=== PATIENT | male | born 2005 | race Two or more races ===

== ENCOUNTER 2025-08-20 21:51 | Emergency (ER) | payer OTHER ==
[~2025-08-20] VITALS: Ht 180.3 cm; Wt 74.8 kg
[2025-08-20] MEDS ORDERED: CEFTRIAXONE SODIUM 1,000 MG VIAL IV ONE (23:30)
[2025-08-20] MEDS ORDERED: FAMOTIDINE/PF 20 MG/2 ML VIAL IV ONE (23:30)
[2025-08-20] MEDS ORDERED: KETOROLAC TROMETHAMINE 30 MG VIAL IV ONE (23:30)
[2025-08-21] MEDS ORDERED: KETOROLAC TROMETHAMINE 30 MG VIAL ONE (01:07)
[2025-08-21] MEDS ORDERED: FAMOTIDINE/PF 20 MG/2 ML VIAL ONE (01:08)
[2025-08-21] MEDS ORDERED: CEFTRIAXONE SODIUM 1,000 MG VIAL ONE ×2 (01:08→01:24)
[2025-08-21 03:19] LABS: BASO % 0.6 % (0.1-1.2); EOS # 0.10 (0.04-0.54); EOS % 0.8 % (0.7-7.0); LYMPH # 3.35 (1.18-3.74); LYMPH % 28.3 % (19.3-53.1); MEAN PLATELET VOLUME 10.40 fl (9.4-12.4); MONO # 1.11 (0.24-0.82); MONO % 9.4 % (4.7-12.5); NEUT # 7.18 (1.56-6.13); NEUT % 60.6 % (34.0-71.1); RED CELL DISTRIBUTION WIDTH 12.8 % (11.6-14.4)
[2025-08-21 03:24] LABS: ERYTHROCYTE SEDIMENTATION RATE 16 mm/hr (0-15)
[2025-08-21 03:44] LABS: BUN CREA RATIO 13.0 (7.0-25.0); CREATININE SERUM 1.23 mg/dL (0.70-1.30); GFR 74.28; GLUCOSE FASTING 85.0 mg/dL (65-100); OSMOLALITY SERUM 276.0 MOSM/KG (275-295)
[2025-08-21 04:30] LABS: URINE BACTERIA 8.3 uL (0.0-1933); URINE RBC 4.3 uL (0.0-20.8); URINE WBC 8.7 uL (0.0-23.2)
[2025-08-21 04:38] LABS: URINE APPEARANCE Clear; URINE BILIRRUBIN Negative (NEGATIVE); URINE BLOOD Negative; URINE COLOR Yellow; URINE GLUCOSE Negative (NEGATIVE); URINE KETONE Negative (NEGATIVE); URINE LEUKOCYTE Negative; URINE NITRATE Negative; URINE PROTEIN Negative (NEGATIVE); URINE UROBILINOGEN 1.0 E.U./dl
[2025-08-21 04:39] LABS: URINE CAST 0.00 uL (0.0-1.40); URINE EPITHELIAL CELLS 0.9 uL (0.0-38.8)
[2025-08-21] MEDS ORDERED: CEPHALEXIN500 MG PO (06:51)
[2025-08-21] MEDS ORDERED: CENTANY30 GM TOP (06:51)
== END 2025-08-21 07:02 ==
LOC: ER 21:52
PROVIDERS: Student in an Organized Health Care Education/Training Program
DX: L02.214 Cutaneous abscess of groin (principal)
CPT/HCPCS: 36415; 74177; Q9965